=== PATIENT | female | born 1995 | race Caucasian/White ===

== ENCOUNTER → 2018-12-12 07:53 | Outpatient (CLI) | payer OTHER, SELFPAY ==
--- NOTE | 2018-12-12 07:55 | DI.US.S_ITS ---
ULTRASOUND OF RIGHT BREAST: 12/12/2018 CLINICAL: Palpable right breast lump x 2 mos. No prior exams were available for comparison. Ultrasound of the right breast was performed on the area of interest. Boucher scale images of the real-time examination were reviewed. IMPRESSION: NEGATIVE There is no sonographic evidence of malignancy. There is no sonographic abnormality seen in the right breast to correspond with the palpable abnormality, however, clinical followup is recommended. This exam was interpreted at Station ID: [id number]. Electronically Signed By: Dinora dent/marco:12/12/2018 09:03:42 letter sent: Clinical Evaluation Ultrasound BI-RADS: 1 Negative
== END ==
PROVIDERS: PCP Family Medicine; Visit Provider Family Medicine
DX: N60.01 Solitary cyst of right breast (principal)
CPT/HCPCS: 76642

== ENCOUNTER → 2020-11-14 09:53 | Outpatient (CLI) | payer OTHER, SELFPAY ==
[2020-11-14] MEDS: COVID-19 VACC, Ad26(JANSSEN)/PF 0.5 ML IM (09:59)
== END ==
PROVIDERS: PCP Family Medicine; Visit Provider Internal Medicine
DX: Z23 Encounter for immunization (principal)
CPT/HCPCS: 0031A; 91303